=== PATIENT | female | born 1975 | race Caucasian/White ===

== ENCOUNTER → 2021-04-10 | Outpatient (CLI) | payer BC ==
--- NOTE | 2021-04-10 17:02 | MR ---
MRI CERVICAL SPINE: CLINICAL HISTORY: G43.919 Migraine M50.20 Disc displacement TECHNIQUE: Multiplanar, multisequence imaging of the cervical spine and brain is performed without co ntrast COMPARISON: CT brain 03/05/2010 FINDINGS: Brain MRI: There is no restricted diffusion. The corpus callosum, pituitary, cervical medullary junct ion, cerebellopontine angles are within normal limits. There are expected vascular flow voids. The or bits show symmetric appearance. Mastoid air cells are well aerated. Inflammatory change present withi n the ethmoid air cells. There is no hemorrhage or hydrocephalus. Brain signal is remarkable for scat tered hyperintensities in the subcortical, periventricular white matter on T2 and inversion recovery sequences, there are approximately 15 to 20 lesions, largest lesion on axial image #21 measures 9 mm in greatest dimension in the right parietal lobe. IMPRESSION: Nonspecific white matter demyelination, consider multiple sclerosis in the appropriate cl inical setting, migraine headache, hypertension, vasculitis and Lyme disease. Mild sinus disease. Cervical spine MRI: Sagittal images of the cervical spine show the craniocervical junction to appear within normal limits . The cervical and upper thoracic spinal cord is normal in course, caliber, and signal. Vertebral a lignment shows reversal cervical vertebral lordosis. The vertebral body heights are normal. The bon e marrow signal intensity is within normal limits. Axial images show foraminal encroachment bilaterally at C3-4 due to uncovertebral joint hypertrophy. At C4-5 there is a small posterior disc protrusion contacting the anterior cervical cord. C5-6 shows a right posterior paracentral disc herniation causing anterolateral mass effect on the the kathleen sac, there is some encroachment on the foramina due to uncovertebral joint hypertrophy. There may be some deformity of the cervical cord. Remaining levels are within normal limits. IMPRESSION: Degenerative disc disease as described, disc herniation C5-6. No significant spinal steno sis. IMPRESSION: Negative MRI of the cervical spine, no significant abnormality is seen to account for kacey martinez's clinical symptoms.
== END | disposition home or self-care (01) ==
LOC: RADMRIMAIN 15:30
PROVIDERS: ATTEND Psychiatry & Neurology Neurology
DX: M50.322 Other cervical disc degeneration at C5-C6 level (principal); M50.222 Other cervical disc displacement at C5-C6 level; G43.919 Migraine, unspecified, intractable, without status migrainosus
CPT/HCPCS: 70551; 72141